=== PATIENT | female | born 1945 | race Asian ===

== ENCOUNTER 2016-09-20 13:12 | Observation (INO) | payer OTHER ==
[~2016-09-20] VITALS: Ht 157.5 cm; Wt 155.7 kg
[~2016-09-20 13:12] MED LIST: ACTOS15 MG PO; ALBUAER5 INH; FURO40TA93 PO; HYDR-2748 PO; HYDR25TA60 PO; LABETALOL200 MG PO; ZOLP10TA2 PO
--- NOTE | 2016-09-20 15:00 | NUR ---
JUST NOTIFIED OF ASSIGNED TO PT'S ROOM. PT RESTING IN BED. NAD NOTED. NO C/O VOICED. ASSESSMENT COMPLETED.
--- NOTE | 2016-09-20 15:55 | NUR ---
PT TO CXR VIA WHEELCHAIR PER TECHS.
[2016-09-20 16:00] VITALS: BP 159/81; TEMP 98.4
[2016-09-20 17:38] VITALS: BP 158/96; TEMP 98.5; Ht 157.5 cm; Wt 155.7 kg
[2016-09-20 17:44] LABS: PLATELET COUNT 371 K/uL (152-353)
[2016-09-20 18:06] LABS: POTASSIUM 2.6 mmol/L (3.6-5.2); SODIUM 137 mmol/L (136-145)
[2016-09-20 18:32] LABS: PARTIAL THROMBOPLASTIN TIME 32.4 SECONDS (24.5-33.6)
[2016-09-20 21:20] VITALS: BP 173/91; TEMP 98.4
[2016-09-21 00:05] VITALS: BP 165/79; TEMP 98.5
--- NOTE | 2016-09-21 02:02 | NUR ---
[id number] CONTACTED DR. ROMERO DUE TO PREVIOUS ORDER FOR 1 LITER OF NS WITH 10MEQ KCL UNAVAILABLE. NEW ORDER TO CANCEL LITER WITH 10MEQ AND GIVE 1 LITER NS WITH 20MEQ KCL AT 125ML/HR. T.O. R&V
--- NOTE | 2016-09-21 02:06 | NUR ---
09/20/2016 AT [address] ROMERO DUE TO MEDICATION UNAVAILABLE. 10MEQ KCL/100ML NS UNAVAILABLE. NEW ORDER FOR 40MEQ KCL PO NOW, THEN REPEAT DOSE OF 40MEQ PO IN 4 HOURS. GIVE 1 LITER NS WITH 10MEQ KCL AT 125ML/HOUR. T.O. R&V.
--- NOTE | 2016-09-21 02:12 | NUR ---
09/20/2016 AT 2200. PHARM D CONTACTED [facility] AT APPROX 2030 ABOUT MAGNESIUM AND KCL NOT PROFILED. PHARM D STATES THEY ARE WORKING TO GET MEDICATION PROFILED. MEDICATION FINALLY PROFILED AROUND 2200.
[2016-09-21 04:00] VITALS: BP 154/68; TEMP 98.2
[2016-09-21 06:19] LABS: PLATELET COUNT 377 K/uL (152-353)
[2016-09-21 06:37] LABS: POTASSIUM 3.1 mmol/L (3.6-5.2); SODIUM 136 mmol/L (136-145)
[2016-09-21 08:00] VITALS: BP 181/91; TEMP 97.8
--- NOTE | 2016-09-21 11:20 | NUR ---
MEDICAL RELEASE FORM SENT TO [facility] FOR ENTIRE RECORD INCLUDING DIAGNOSTIC TESTING RESULTS.
[2016-09-21 11:58] VITALS: BP 178/89; TEMP 99.4
--- NOTE | 2016-09-21 15:30 | NUR ---
SPOKE WITH DR ROMERO REGARDING PT'S URINE OUTPUT AND LAB RESULTS. PT NOT ON HOME MEDICATIONS INFORMED MD AWAITING ON PHARMACY MED LIST D/T PT DOESN'T HAVE MED LIST OR MEDICATION BOTTLES. STATED OK. NEW ORDERS RECEIVED FOR IN AND OUT CATHETER. INFORMED MD THAT I SENT MEDICAL RELEASE FORM @ 3260 TO OBTAIN MEDICAL RECORDS FROM DR GEORGE. STATED I NEED THOSE TODAY LET ME SPEAK TO UR DEPT.
[2016-09-21 16:00] VITALS: BP 187/97; TEMP 98.8
--- NOTE | 2016-09-21 16:00 | NUR ---
SPOKE WITH DR ROMERO SHE STATED SHE SPOKE WITH DR GEORGE. [facility] STATED THAT PT WAS TO FOLLOW UP WITH SPECIALIST EITHER IN [place] OR [place] D/T NEEDING MORE SPECIALIZED CARE REGARDING TREATMENT PLAN FOR CANCER. DR ROMERO STATED THAT NURSING NEEDS TO SPEAK WITH PATIENT AND FAMILY TO OBTAIN AREA THAT PT WOULD PREFER TO GO FOR TREATMENT.
--- NOTE | 2016-09-21 16:30 | NUR ---
SPOKE WITH DR ROMERO REGARDING IN AND OUT URINE OUTPUT 200ML. NEW ORDERS RECEIVED FOR 1 LITER NS BOLUS.
[2016-09-21] MEDS ORDERED: CARV6.25 PO (18:45)
[2016-09-21] MEDS ORDERED: FLUT0.05 NAS (18:48)
[2016-09-21 20:21] VITALS: BP 171/91; TEMP 98.6
[2016-09-22] VITALS (7 sets, daily range): BP systolic 163–187; BP diastolic 90–104; TEMP 98–99
[2016-09-22 03:42] LABS: PLATELET COUNT 374 K/uL (152-353)
[2016-09-22 03:52] LABS: POTASSIUM 3.7 mmol/L (3.6-5.2); SODIUM 134 mmol/L (136-145)
--- NOTE | 2016-09-22 13:00 | NUR ---
DR ROMERO NOTIFED OF ELEVATED BP. NEW ORDERS GIVEN.
--- NOTE | 2016-09-22 13:59 | NUR ---
DR ROMERO NOTIFIED OF PT'S INTAKE AND OUTPUT AND BNP AT THIS TIME.
--- NOTE | 2016-09-22 14:10 | NUR ---
DR ROMERO NOTIFIED OF PT'S WEIGHT OF 336 VIA BED SCALE AT THIS TIME
[2016-09-23 00:33] VITALS: BP 169/91; TEMP 98.2
[2016-09-23 04:00] VITALS: BP 188/102; TEMP 98.2
[2016-09-23 07:11] LABS: PLATELET COUNT 363 K/uL (152-353)
[2016-09-23 07:52] LABS: POTASSIUM 3.9 mmol/L (3.6-5.2); SODIUM 139 mmol/L (136-145)
[2016-09-23 08:00] VITALS: BP 171/92; TEMP 98.9
[2016-09-23 11:57] VITALS: BP 155/94; TEMP 98.9
--- NOTE | 2016-09-23 14:12 | NUR ---
DC INSTRUCTIONS GIVEN TO PT AND FAMILY. INSTRUCTED PT ON FOLLOW UP APPT WITH DR ROMERO ON . PT INSTRUCTED IF NOT HEARD FROM [place] OR [place] DR OFFICE BY SUNDAY TO CALL DR ROMERO AND LET HER KNOW. PT V/U. MEDS CALLED INTO [facility] DUE TO STANS BEING CLOSED AT THIS TIME. PT V/U. IV DC;D AT THIS REN[facility]E WITH CANNULA INTACT AND SITE CARE PROVIDED.
--- NOTE | 2016-09-23 14:39 | NUR ---
PT LEFT VIA WC AT THIS TIME
== END 2016-09-23 14:25 | disposition home or self-care (01) ==
LOC: MED/SURG 13:12
PROVIDERS: ADMIT Family Medicine
DX: D37.8 Neoplasm of uncertain behavior of other specified digestive organs (principal); E86.0 Dehydration; R00.0 Tachycardia, unspecified; E13.65 Other specified diabetes mellitus with hyperglycemia; Z91.19 Patient's noncompliance with other medical treatment and regimen; I10 Essential (primary) hypertension; N39.0 Urinary tract infection, site not specified; R60.9 Edema, unspecified; Z79.01 Long term (current) use of anticoagulants
CPT/HCPCS: 36415; 80053; 81000; 82150; 82948; 83497; 83690; 83735; 83880; 85027; 85610; 85730; 86316; 87040; 93005; 96360; 96361; 96367; 96374; 96375; 99220; G0378; G0379; J1940; J2175; J3475; J3480

== ENCOUNTER 2016-11-20 10:17 | Outpatient (CLI) | payer OTHER ==
[~2016-11-20 10:17] MED LIST changes: +CARV6.25 PO; +FLUT0.05 NAS
[2016-11-20] MEDS ORDERED: METFORMIN ER1000 MG PO (10:46)
[2016-11-20] MEDS ORDERED: ALLO100T22 PO ×2 (10:47→10:48)
[2016-11-20] MEDS ORDERED: POTASSIUM CHLO20 ME1 PO (10:47)
[2016-11-20] MEDS ORDERED: WARF5TAB6 PO (10:48)
== END 2016-11-20 10:19 | disposition short-term general hospital (02) ==
LOC: AMB 10:17
DX: M54.5 Low back pain (principal); R31.9 Hematuria, unspecified
CPT/HCPCS: A0425; A0427

== ENCOUNTER → 2016-12-20 05:45 | Outpatient (CLI) | payer OTHER ==
[~2016-12-20 05:45] MED LIST changes: +ALLO100T22 PO; +METFORMIN ER1000 MG PO; +POTASSIUM CHLO20 ME1 PO; +WARF5TAB6 PO
== END | disposition short-term general hospital (02) ==
LOC: AMB 05:45
DX: R40.20 Unspecified coma (principal)
CPT/HCPCS: A0425; A0427